=== PATIENT | male | born 1990 | race American Indian/Alaskan Native ===

== ENCOUNTER 2020-09-18 10:05 | Emergency (ER) | payer SELFPAY ==
[2020-09-18 10:13] VITALS: BP 126/83
--- NOTE | 2020-09-18 10:43 | Emergency Department Report ---
ED ENT HPI - General Chief complaint: Dental/Oral Stated complaint: TOOTHACHE Time Seen by Provider: 09/18/20 10:30 Source: patient Mode of arrival: Ambulatory Limitations: No Limitations - History of Present Illness Initial comments: 30-year-old male with a history of poor dentition presents to the ER today complaining of dental pain and facial swelling. Patient states that he started having pain to his tooth in the left upper jaw about 3 days ago he also started with some mild swelling but over the past 3 days pain and swelling has been getting worse. He has been taking [id number] Motrin without much relief. Patient states that he does not currently have a dentist. He denies any fever or chills. He denies any difficulty swallowing, difficulty breathing or any other associated symptoms. MD complaint: tooth pain, other (Facial swelling ) -: Gradual, days(s) (3) - Related Data Previous Rx's Medication Instructions Recorded Last Taken Type Clindamycin [Clindamycin CAP] 300 mg PO Q6H #40 capsule 09/18/20 Unknown Rx Ketorolac [Toradol] 10 mg PO Q6H PRN #20 tablet 09/18/20 Unknown Rx Tramadol HCl/Acetaminophen 1 each PO Q4H PRN #15 tablet 09/18/20 Unknown Rx [Ultracet Tablet] Allergies Allergy/AdvReac Type Severity Reaction Status Date / Time No Known Allergies Allergy Unverified 09/18/20 10:11 ED Dental HPI - General Chief complaint: Dental/Oral Stated complaint: TOOTHACHE Time Seen by Provider: 09/18/20 10:30 Source: patient Mode of arrival: Ambulatory Limitations: No Limitations - Related Data Previous Rx's Medication Instructions Recorded Last Taken Type Clindamycin [Clindamycin CAP] 300 mg PO Q6H #40 capsule 09/18/20 Unknown Rx Ketorolac [Toradol] 10 mg PO Q6H PRN #20 tablet 09/18/20 Unknown Rx Tramadol HCl/Acetaminophen 1 each PO Q4H PRN #15 tablet 09/18/20 Unknown Rx [Ultracet Tablet] Allergies Allergy/AdvReac Type Severity Reaction Status Date / Time No Known Allergies Allergy Unverified 09/18/20 10:11 ED Review of Systems ROS: Stated complaint: TOOTHACHE Other details as noted in HPI Comment: All other systems reviewed and negative Constitutional: denies: chills, fever Eyes: denies: eye pain, eye discharge, vision change ENT: dental pain, other (Left-sided facial swelling). denies: ear pain, throat pain, hearing loss, epistaxis, congestion Respiratory: denies: cough, shortness of breath, SOB with exertion, SOB at rest, wheezing Cardiovascular: denies: chest pain, palpitations Gastrointestinal: denies: abdominal pain, nausea, vomiting, diarrhea, constipation, hematemesis, melena, hematochezia Genitourinary: denies: urgency, dysuria, frequency, hematuria, discharge, testicular pain, testicular mass Musculoskeletal: denies: back pain, joint swelling, arthralgia Skin: denies: rash, lesions, change in color, change in hair/nails, pruritus Neurological: denies: headache, weakness, numbness, paresthesias, confusion, abnormal gait, vertigo Psychiatric: denies: anxiety, depression, auditory hallucinations, visual dominique ucinations, homicidal thoughts, suicidal thoughts Hematological/Lymphatic: denies: easy bleeding, easy bruising, swollen glands ED Past Medical Hx - Past Medical History Previous Medical History?: No - Surgical History Past Surgical History?: No - Medications Home Medications: Home Medications Medication Instructions Recorded Confirmed Last Taken Type Clindamycin [Clindamycin CAP] 300 mg PO Q6H #40 capsule 09/18/20 Unknown Rx Ketorolac [Toradol] 10 mg PO Q6H PRN #20 tablet 09/18/20 Unknown Rx Tramadol HCl/Acetaminophen 1 each PO Q4H PRN #15 tablet 09/18/20 Unknown Rx [Ultracet Tablet] ED Physical Exam - General Limitations: No Limitations General appearance: alert, in no apparent distress - Head Head exam: Present: atraumatic, normocephalic, normal inspection - Eye Eye exam: Present: normal appearance, PERRL, EOMI Pupils: Present: normal accommodation - ENT ENT exam: Present: normal exam, normal orophraynx, mucous membranes moist, TM's normal bilaterally, other ( Mild left sided facial swelling noted mainly left cheek no associated dental abscess. No trismus or drooling) - Expanded ENT Exam Expanded Mouth exam: Present: normal external inspection. Absent: drooling, trismus, muffled voice, tongue normal, tongue elevation, laceration Teeth exam: Present: dental caries (Throughout the entire mouth) 1 - Fractured (Severe dental decay noted), Dental Tenderness, Other (Dental abscess noted) Throat exam: Positive: normal inspection - Neck Neck exam: Present: normal inspection, full ROM - Respiratory Respiratory exam: Present: normal lung sounds bilaterally. Absent: respiratory distress - Cardiovascular Cardiovascular Exam: Present: regular rate, normal rhythm, normal heart sounds - GI/Abdominal GI/Abdominal exam: Present: soft. Absent: distended, tenderness, guarding, rebound - Neurological Exam Neurological exam: Present: alert, oriented X3, CN II-XII intact, normal gait - Psychiatric Psychiatric exam: Present: normal affect, normal mood - Skin Skin exam: Present: intact ED Course Vital Signs 09/18/20 10:12 Temperature 98.6 F Pulse Rate 88 Respiratory 20 Rate Blood Pressure 126/83 O2 Sat by Pulse 98 Oximetry Critical care attestation.: If time is entered above; I have spent that time in minutes in the direct care of this critically ill patient, excluding procedure time. ED Disposition Clinical Impression: Abscess, dental Disposition: DC-01 TO HOME OR SELFCARE Is pt being admited?: No Does the pt Need Aspirin: No Condition: Stable Instructions: Dental Abscess, [id number] Additional Instructions: Take the antibiotics as prescribed. Take the pain medications as prescribed. It is important that you follow up with Dentist given on dental list or on discharge instructions. Return to ED if symptoms worsens or changes. Prescriptions: Clindamycin [Clindamycin CAP] 300 mg PO Q6H #40 capsule Ketorolac [Toradol] 10 mg PO Q6H PRN #20 tablet PRN Reason: Pain Tramadol HCl/Acetaminophen [Ultracet Tablet] 1 each PO Q4H PRN #15 tablet PRN Reason: Pain , Severe (7-10) Referrals: [facility] [Outside] - 3-5 Days Time of Disposition: 10:42
== END 2020-09-18 10:56 | disposition home or self-care (01) ==
LOC: ED 10:05
DX: K04.7 Periapical abscess without sinus (principal); Z79.899 Other long term (current) drug therapy
CPT/HCPCS: 99281

== ENCOUNTER 2021-12-06 10:48 | Emergency (ER) | payer SELFPAY ==
[2021-12-06 11:12] VITALS: BP 102/63
--- NOTE | 2021-12-06 11:43 | Emergency Department Report ---
ED Upper Extremity Inj HPI - General Chief Complaint: Extremity Injury, Upper Stated Complaint: LEFT FINGER BROKEN Time Seen by Provider: 12/06/21 11:39 Source: patient Mode of arrival: Ambulatory Limitations: No Limitations - History of Present Illness Initial Comments: Is a 31-year-old male that comes to the ER with hand pain. 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 He is neurovascularly intact. He denies any other injury. Complaint: Injury to:: left -: Sudden, days(s) Other Extremity Injury: Hand: Left Other Injuries: none Handedness: right Place: home Improves With: none Worsens With: none Associated Symptoms: denies other symptoms - Related Data Previous Rx's Medication Instructions Recorded Last Taken Type Clindamycin [Clindamycin CAP] 300 mg PO Q6H #40 capsule 09/18/20 Unknown Rx Ketorolac [Toradol] 10 mg PO Q6H PRN #20 tablet 09/18/20 Unknown Rx Tramadol HCl/Acetaminophen 1 each PO Q4H PRN #15 tablet 09/18/20 Unknown Rx [Ultracet Tablet] Allergies Allergy/AdvReac Type Severity Reaction Status Date / Time No Known Allergies Allergy Unverified 09/18/20 10:11 ED Review of Systems ROS: Stated complaint: LEFT FINGER BROKEN Other details as noted in HPI Comment: All other systems reviewed and negative ED Past Medical Hx - Past Medical History Previous Medical History?: No - Surgical History Past Surgical History?: No - Family History Family history: no significant - Social History Smoking Status: Never Smoker Substance Use Type: None - Medications Home Medications: Home Medications Medication Instructions Recorded Confirmed Last Taken Type Clindamycin [Clindamycin CAP] 300 mg PO Q6H #40 capsule 09/18/20 Unknown Rx Ketorolac [Toradol] 10 mg PO Q6H PRN #20 tablet 09/18/20 Unknown Rx Tramadol HCl/Acetaminophen 1 each PO Q4H PRN #15 tablet 09/18/20 Unknown Rx [Ultracet Tablet] ED Physical Exam - General Limitations: No Limitations General appearance: alert, in no apparent distress - Head Head exam: Present: atraumatic, normocephalic - Eye Eye exam: Present: normal appearance - ENT ENT exam: Present: mucous membranes moist - Neck Neck exam: Present: normal inspection - Respiratory Respiratory exam: Present: normal lung sounds bilaterally. Absent: respiratory distress - Cardiovascular Cardiovascular Exam: Present: regular rate, normal rhythm. Absent: systolic murmur, diastolic murmur, rubs, gallop - GI/Abdominal GI/Abdominal exam: Present: soft, normal bowel sounds - Rectal Rectal exam: Present: deferred - Extremities Exam Extremities exam: Present: normal inspection - Back Exam Back exam: Present: normal inspection - Neurological Exam Neurological exam: Present: alert, oriented X3 - Psychiatric Psychiatric exam: Present: normal affect, normal mood - Skin Skin exam: Present: warm, dry, intact, normal color. Absent: rash ED Course Vital Signs 12/06/21 11:10 Temperature 97.3 F L Pulse Rate 80 Respiratory 18 Rate Blood Pressure 102/63 [Left] O2 Sat by Pulse 99 Oximetry ED Medical Decision Making - Radiology Data Radiology results: report reviewed, image reviewed No acute process - Medical Decision Making Vital Signs (72 hours) 12/06/21 11:10 Temperature 97.3 F L Pulse Rate 80 Respiratory 18 Rate Blood Pressure 102/63 [Left] O2 Sat by Pulse 99 Oximetry X-ray noted to be negative. Patient has been educated on rice therapy Patient discharged home with discharge plan of care including diet, medication, activity and follow-up. He verbalizes understanding of discharge plan of care. - Differential Diagnosis Rule out fracture Critical care attestation.: If time is entered above; I have spent that time in minutes in the direct care of this critically ill patient, excluding procedure time. ED Disposition Clinical Impression: Finger pain Disposition: 01 HOME / SELF CARE / HOMELESS Is pt being admited?: No Does the pt Need Aspirin: No Condition: Stable Instructions: Hand Contusion Additional Instructions: rest ice elevate the hand over the counter motrin or tylenol for pain follow up with ortho if pain persists referral below Referrals: LEIA BENITEZ MD [Staff Physician] - 3-5 Days Forms: Work/School Release Form(ED) Time of Disposition: 13:17
--- NOTE | 2021-12-06 12:30 | XRay Report ---
LEFT HAND 3 VIEW(S) INDICATION / CLINICAL INFORMATION: hand pain COMPARISON: None available. FINDINGS: BONES / JOINT(S): No acute fracture or subluxation. No significant arthritis. Along the radial cortex of the ring finger proximal phalanx distally, there is an osseous excrescence which measures approxi mately 7 mm. SOFT TISSUES: No significant abnormality. ADDITIONAL FINDINGS: None. IMPRESSION: 1. No acute findings. 2. 7 mm osseous excrescence along the radial aspect of the ring finger proximal phalanx distally. Thi s could be a small osteochondroma/exostosis. This could also be remodeling related to a prior fractur e. Signer Name: Cuba Becerra MD Signed: 12/06/2021 12:26 PM Workstation Name: [id number]
== END 2021-12-06 14:10 | disposition home or self-care (01) ==
LOC: ED 10:48
DX: M79.646 Pain in unspecified finger(s) (principal)
CPT/HCPCS: 99283